=== PATIENT | male | born 1955 | race Caucasian/White ===

== ENCOUNTER 2021-01-10 11:38 | Day surgery (SDC) | payer OTHER, SELFPAY ==
[2021-01-03 14:28] VITALS: BMI 30.9
--- NOTE | 2021-01-09 10:11 | P.CONAN_ITS ---
Documented by User: Cony Clifford NP 01/09/21 10:11 HPI - Anesthesia Eval Consult details Narrative: 65yo M for Upper Endoscopy and Colonoscopy [facility] Past Medical History Medical History Barretts esophagus Hepatitis HTN (hypertension) Ischemic colitis Surgical History Surgical History H/O colonoscopy History of esophagogastroduodenoscopy (EGD) Hx of cholecystectomy Hx of total knee replacement Social History Social History Household Members: Spouse Alcohol intake: current Alcohol intake frequency: a few times a week Patient Tobacco Use Status: Current someday Tobacco user Tobacco use type: Cigar Advance Directives Information Provided: No Meds Allergies Allergy/AdvReac Type Severity Reaction Status Date / Time No Known Allergies Allergy Verified 01/10/21 12:01 Home Medications Medication Instructions Recorded Confirmed Last Taken Type amlodipine 10 mg tablet 10 mg PO DAILY 01/03/21 01/03/21 01/10/21 08:00 History aspirin 81 mg tablet,delayed 81 mg PO DAILY 01/03/21 01/03/21 01/07/21 08:00 History release pantoprazole 20 mg tablet,delayed 20 mg PO DAILY 01/03/21 01/03/21 Unknown History release Exam Exam Date and Time: January 09, 2021 1011 Height,Weight and Vital Signs: Height 5 ft 4 in Weight 81.647 kg Assessment and Plan Assessment Anesthesia Assessment: Chart Reviewed Documented by User: Renu Lema MD 01/10/21 13:06 [facility] Past Medical History Medical History Barretts esophagus Hepatitis HTN (hypertension) Ischemic colitis Surgical History Surgical History H/O colonoscopy History of esophagogastroduodenoscopy (EGD) Hx of cholecystectomy Hx of total knee replacement History of Problems with Anesthesia: No Social History Social History Household Members: Spouse Alcohol intake: current Alcohol intake frequency: a few times a week Patient Tobacco Use Status: Current someday Tobacco user Tobacco use type: Cigar Advance Directives Information Provided: No Meds Allergies Allergy/AdvReac Type Severity Reaction Status Date / Time No Known Allergies Allergy Verified 01/10/21 12:01 Home Medications Medication Instructions Recorded Confirmed Last Taken Type amlodipine 10 mg tablet 10 mg PO DAILY 01/03/21 01/03/21 01/10/21 08:00 History aspirin 81 mg tablet,delayed 81 mg PO DAILY 01/03/21 01/03/21 01/07/21 08:00 History release pantoprazole 20 mg tablet,delayed 20 mg PO DAILY 01/03/21 01/03/21 Unknown His tory release Exam Airway Mallampati Class: II TM Dist: >3cm Neck ROM: Full Loose/Missing/Broken Teeth: No Heart: RRR Lungs: CTA Assessment and Plan Final Anesthetic Review History of Problems with Anesthesia: No NPO: Yes ASA Class: II Final Preanesthetic Review: Meds/Allgs Chart Reviewed, Consent Obtained/Reviewed and Anes Risks/Benef Reviewed Patient Risk: Low Procedure Risk: Intermediate Anesthetic Plan Anesthetic Plan: MAC: Disposition: Standard PACU
[2021-01-10 12:02] VITALS: BP 143/80; PULSE 77; RESP 18; TEMP 36.4; O2SAT 94
[2021-01-10] MEDS: Lactated Ringers 1,000 ML 100 ML IVCONT (12:19)
--- NOTE | 2021-01-10 13:05 | MHC.SHP ---
Pre-Procedural Eval Section A Date of Service: 01/10/21 The patient is an INPATIENT: No Changes since office visit: No Cold of Flu in the past 2 weeks, No New Medical Problems, No Changes in Medication and No Patient answered all questions The History & Physical has been completed within 30 days and I have reviewed it.: Yes Section B Chief Complaint: reflux,screening Allergies: Allergies Allergy/AdvReac Type Severity Reaction Status Date / Time No Known Allergies Allergy Verified 01/10/21 12:01 Plan I have reviewed the history and physical and performed a pertinent physical examination on my patient. No changes have occurred unless specified.
--- NOTE | 2021-01-10 13:43 | P.BOP_ITS ---
Brief Operative Note Date of Service: 01/10/21 Pre-op diagnosis: barretts, screening Post-op diagnosis: same (colon polyp, diverticulosis) Procedure: EGD/Colonosocpy Surgeon: Chapito Dotson Anesthesia: MAC Was an Mixed Crop Farmer used for this Procedure?: No Estimated blood loss (mL): 5 Pathology: other (antral bxs, esophagus bxs, polyp at 45 cm) Condition: stable Disposition: PACU
[2021-01-10 13:45] VITALS: BP 113/71; PULSE 72; RESP 18; TEMP 36.1; O2SAT 96
[2021-01-10 14:00] VITALS: BP 139/77; PULSE 67; RESP 18; TEMP 36.1; O2SAT 98
--- NOTE | 2021-01-10 14:14 | OP_ITS ---
SURGEON: Chapito Dotson MD INDICATIONS: 1. Wilkins's esophagus. 2. Colon cancer screening, rectal bleeding, and history of ischemic colitis. PREOPERATIVE DIAGNOSIS: POSTOPERATIVE DIAGNOSIS: PROCEDURE PERFORMED: 1. Upper endoscopy with biopsy. 2. Colonoscopy to the terminal ileum with biopsy. ESTIMATED BLOOD LOSS: COMPLICATIONS: ANESTHESIA: ASSISTANTS: SPECIMENS: MEDICATIONS: Monitored anesthesia care. DESCRIPTION OF PROCEDURE: History and physical performed. The risks and benefits of the procedure were explained to the patient. Informed consent was obtained. The patient was placed in a left lateral decubitus position. A digital rectal exam was performed prior to the colonoscopy. The Olympus video gastroscope was introduced into the esophagus, stomach, and duodenum. Examination was performed and the scope was removed. He was repositioned for colonoscopy. The Olympus pediatric video colonoscope was introduced into the rectum and advanced to the cecum without difficulty. The cecum was identified by transillumination, palpation, and identification of ileocecal valve. Examination was performed and the scope was removed. He tolerated both procedures well and was taken to recovery area in stable condition. FINDINGS: UPPER ENDOSCOPY: Esophagus: There was a less than 2 cm area of Wilkins's esophagus with no raised lesions or ulcerated areas. Biopsies were obtained at 34 and 33 cm. Stomach: Stomach showed a single polypoid area and the pre-pyloric area that was notable for a 2 mm area of ulceration. Biopsies were obtained from the antrum at this site. Duodenum: The bulb and second portion were normal. COLONOSCOPY: The terminal ileum was examined and appeared normal. The visualized colonic mucosa was within normal limits. There was no evidence of ischemic colitis. A single polyp measuring less than 5 mm was identified at 45 cm, removed with biopsy forceps. No other polyps were identified. There was extensive sigmoid diverticulosis with scattered diverticula in the right colon. Retroflexed examination showed internal hemorrhoids that were small to moderate in size. The quality of the prep was good. IMPRESSION: 1. Wilkins's esophagus. 2. Colon polyps. 3. Diverticulosis. RECOMMENDATION: Follow up the biopsy results. MD HETAL Mackey/STEPHANIE / [id number]
== END 2021-01-10 14:32 | disposition home or self-care (01) ==
PROVIDERS: PCP Internal Medicine; Visit Provider Internal Medicine Gastroenterology
PROC: (CPT 45380; principal; 2021-01-10 13:00)
DX: Z12.11 Encounter for screening for malignant neoplasm of colon (principal); D12.6 Benign neoplasm of colon, unspecified; K57.30 Diverticulosis of large intestine without perforation or abscess without bleeding; K64.8 Other hemorrhoids; Z86.010 Personal history of colon polyps; K22.70 Barrett's esophagus without dysplasia; K21.9 Gastro-esophageal reflux disease without esophagitis; I10 Essential (primary) hypertension; Z87.19 Personal history of other diseases of the digestive system
CPT/HCPCS: 45380; 43239; 88305; 88342

== ENCOUNTER 2021-05-08 06:06 | Day surgery (SDC) | payer OTHER, SELFPAY ==
[2021-05-01 10:27] VITALS: BMI 30.9
--- NOTE | 2021-05-07 08:46 | P.CONAN_ITS ---
Documented by User: Cony Clifford NP 05/07/21 08:47 HPI - Anesthesia Eval Consult details Narrative: 65yo M for Upper Endoscopy with [place] s/p EGD and [place] with MAC PMFSH Past Medical History Medical History Barretts esophagus Hepatitis HTN (hypertension) Ischemic colitis Surgical History Surgical History H/O colonoscopy History of esophagogastroduodenoscopy (EGD) Hx of cholecystectomy Hx of total knee replacement History of Problems with Anesthesia: No Social History Social History Household Members: Spouse Alcohol intake: current Alcohol intake frequency: a few times a week Patient Tobacco Use Status: Current someday Tobacco user Tobacco use type: Cigar Use of substances other than those prescribed or required for medical reasons: No Have you been hit, kicked, punched, or otherwise hurt by someone within the past year? If so, by whom?: No Are you DNR?: No Advance Directives: No Advance Directives Information Provided: Yes Recently lost weight without trying: No Nutrition Risks: No Nutritional Risk Poor oral hygiene: No Meds Allergies Allergy/AdvReac Type Severity Reaction Status Date / Time No Known Allergies Allergy Verified 01/10/21 12:01 Home Medications Medication Instructions Recorded Confirmed Last Taken Type amlodipine 10 mg tablet 10 mg PO DAILY 01/03/21 01/03/21 05/08/21 History aspirin 81 mg tablet,delayed 81 mg PO DAILY 01/03/21 01/03/21 04/30/21 History release pantoprazole 20 mg tablet,delayed 20 mg PO DAILY 01/03/21 01/03/21 05/08/21 History release Exam Exam Date and Time: May 07, 2021 0846 Height,Weight and Vital Signs: Height 5 ft 4 in Weight 81.647 kg Assessment and Plan Assessment Anesthesia Assessment: Chart Reviewed Final Anesthetic Review History of Problems with Anesthesia: No Documented by User: Pooja Ziegler MD 05/08/21 07:29 [facility] Past Medical History Medical History Barretts esophagus Hepatitis HTN (hypertension) Ischemic colitis Functional capacity: independent ambulation Family History Family history of problems with anesthesia: No Surgical History Surgical History H/O colonoscopy History of esophagogastroduodenoscopy (EGD) Hx of cholecystectomy Hx of total knee replacement Social History Social History Household Members: Spouse Alcohol intake: current Alcohol intake frequency: a few times a week Patient Tobacco Use Status: Current someday Tobacco user Tobacco use type: Cigar Use of substances other than those prescribed or required for medical reasons: No Have you been hit, kicked, punched, or otherwise hurt by someone within the past year? If so, by whom?: No Are you DNR?: No Advance Directives: No Advance Directives Information Provided: Yes Recently lost weight without trying: No Nutrition Risks: No Nutritional Risk Poor oral hygiene: No Meds Allergies Allergy/AdvReac Type Severity Reaction Status Date / Time No Known Allergies Allergy Verified 01/10/21 12:01 Home Medications Medication Instructions Recorded Confirmed Last Taken Type amlodipine 10 mg tablet 10 mg PO DAILY 01/03/21 01/03/21 05/08/21 History aspirin 81 mg tablet,delayed 81 mg PO DAILY 01/03/21 01/03/21 04/30/21 History release pantoprazole 20 mg tablet,delayed 20 mg PO DAILY 01/03/21 01/03/21 05/08/21 History release Exam Airway Mallampati Class: II TM Dist: >3cm Neck ROM: Full Heart: CTA Lungs: CTA Assessment and Plan Final Anesthetic Review Family History of Problems with Anesthesia: No NPO: Yes ASA Class: II Final Preanesthetic Review: No Changes in Pt Med Stat, Meds/Allgs Chart Reviewed and Consent Obtained/Reviewed Patient Risk: Low Procedure Risk: Low Anesthetic Plan Anesthetic Plan: MAC: Disposition: Standard PACU
[2021-05-08 06:30] VITALS: BP 127/80; PULSE 80; RESP 17; TEMP 36.1; O2SAT 98
[2021-05-08] MEDS: Lactated Ringers 1,000 ML 100 ML IVCONT (07:08)
--- NOTE | 2021-05-08 07:36 | P.HPSUR_ITS ---
Pre-Procedural Eval Section A Date of Service: 05/08/21 The patient is an INPATIENT: No Section B Chief Complaint: Wilkins's Details of Present Illness: see h&p Relevant Family History (Specify if Yes): No Relevant Social History: None Present Medications: see Short Stay Collaborative assessment Medical History: No relevant PMH History of Previous Operations: No relevant previous surgery Allergies: Allergies Allergy/AdvReac Type Severity Reaction Status Date / Time No Known Allergies Allergy Verified 01/10/21 12:01 Review of Systems Sugical H&P ROS: Negative: Constitution, Cardiovascular, Respiratory, Stephy rological, Psychiatric, Hem-Onc, Allergic/Immunologic, Gastrointestinal, Genitourinary, Musculoskeletal, Integumentary, Endocrine and Eyes/Ears/Nose/Throat Exam Surgical H&P Exam: Normal: HEENT, Normal: Heart, Normal: Lungs, Normal: Extremities, Normal: Abdomen, Normal: Skin and Normal: Neurological Plan Diagnosis/Plan: Unchanged I have reviewed the history and physical and performed a pertinent physical examination on my patient. No changes have occurred unless specified.
[2021-05-08 07:59] VITALS: BP 135/78; PULSE 80; RESP 20; TEMP 36.3; O2SAT 98
--- NOTE | 2021-05-08 07:59 | P.BOP_ITS ---
Brief Operative Note Date of Service: 05/08/21 Pre-op diagnosis: barretts with LGD Post-op diagnosis: same Surgeon: Chapito Dotson Anesthesia: MAC Was an Oversize Load Pilot Escort used for this Procedure?: No Estimated blood loss (mL): 53 Pathology: other (brushings and biopsies 34-36 cm) Condition: stable Disposition: PACU
[2021-05-08 08:14] VITALS: BP 147/89; PULSE 69; RESP 17; TEMP 36.3; O2SAT 97
--- NOTE | 2021-05-08 08:28 | OP_ITS ---
SURGEON: Chapito Dotson MD INDICATIONS: Wilkins esophagus with low-grade dysplasia. PREOPERATIVE DIAGNOSIS: POSTOPERATIVE DIAGNOSIS: PROCEDURE PERFORMED: Upper endoscopy with brushings and biopsy. ESTIMATED BLOOD LOSS: COMPLICATIONS: ANESTHESIA: Monitored anesthesia care. ASSISTANTS: SPECIMENS: DESCRIPTION OF PROCEDURE: History and physical was performed. The risks and benefits of the procedure were explained to the patient. Informed consent was obtained. The patient was placed in a left lateral decubitus position. An Olympus video gastroscope was introduced into the esophagus, stomach, and duodenum. Examination was performed. The scope was removed. He tolerated the procedure well and was taken to recovery room in stable condition. FINDINGS: Esophagus: The esophagus showed a 2 cm area of Wilkins esophagus between 34 and 36 cm with no evidence of ulcerated areas or raise lesions. Stomach: The stomach showed a small sliding hiatal hernia, but was otherwise unremarkable. Duodenum: The bulb and second portion were normal. Brushings and biopsies were obtained from the area of Wilkins esophagus for further evaluation. IMPRESSION: Wilkins esophagus with low-grade dysplasia. RECOMMENDATION: Followup the biopsy results. MD HETAL Mackey/STEPHANIE / [id number]
--- NOTE | 2021-05-08 12:50 | HO.POSTANES ---
Post Anesthesia Evaluation Post Anesthesia Evaluation Vital Signs: Vital Signs Temp Pulse Resp BP Pulse Ox 05/08/21 08:14 97.4 F 69 17 147/89 H 97 05/08/21 07:59 97.4 F 80 20 135/78 98 05/08/21 06:30 97 F 80 17 127/80 98 Anesthesia: Monitored Mental Status: Awake Pain Control: Satisfactory Nausea/Vomiting: None Hydration: Adequate Anesthesia-Related Issues: No Anes. Related Issues
== END 2021-05-08 08:38 | disposition home or self-care (01) ==
PROVIDERS: PCP Internal Medicine; Visit Provider Internal Medicine Gastroenterology
PROC: 0DJ08ZZ Inspection of Upper Intestinal Tract, Via Natural or Artificial Opening Endoscopic (ICD-10-PCS; CPT 43235; principal; 2021-05-08 07:30)
DX: K22.710 Barrett's esophagus with low grade dysplasia (principal); K21.9 Gastro-esophageal reflux disease without esophagitis; K44.9 Diaphragmatic hernia without obstruction or gangrene; K55.9 Vascular disorder of intestine, unspecified; I10 Essential (primary) hypertension; B18.2 Chronic viral hepatitis C; Z79.899 Other long term (current) drug therapy; Z79.82 Long term (current) use of aspirin; Z86.010 Personal history of colon polyps; Z90.49 Acquired absence of other specified parts of digestive tract; Z96.659 Presence of unspecified artificial knee joint; F17.290 Nicotine dependence, other tobacco product, uncomplicated
CPT/HCPCS: 43239; 88305

== ENCOUNTER 2022-07-16 08:13 | Day surgery (SDC) | payer OTHER, SELFPAY ==
--- NOTE | 2022-07-15 10:35 | HO.ANESPROP2 ---
Documented by User: Cony Clifford NP 07/15/22 10:35 HPI - Anesthesia Eval Consult details Narrative: 67yo M for Colonoscopy s/p EGD 05/2021 with [facility] Past Medical History Medical History Barretts esophagus Hepatitis HTN (hypertension) Ischemic colitis Family History Family history of problems with anesthesia: No Surgical History Surgical History H/O colonoscopy History of esophagogastroduodenoscopy (EGD) Hx of cholecystectomy Hx of total knee replacement History of Problems with Anesthesia: No Social History Social History Household Members: Spouse Alcohol intake: current Alcohol intake frequency: a few times a week Patient Tobacco Use Status: Current someday Tobacco user Tobacco use type: Cigar Use of substances other than those prescribed or required for medical reasons: No Are you DNR?: No Advance Directives: No Advance Directives Information Provided: Yes Recently lost weight without trying: No Nutrition Risks: No Nutritional Risk Meds Allergies Allergy/AdvReac Type Severity Reaction Status Date / Time No Known Allergies Allergy Verified 01/10/21 12:01 Home Medications Medication Instructions Recorded Confirmed Last Taken Type amlodipine 10 mg tablet 10 mg PO DAILY 01/03/21 07/16/22 07/16/22 History pantoprazole 20 mg tablet,delayed 20 mg PO DAILY 01/03/21 07/16/22 05/08/21 History release Exam Exam Date and Time: July 15, 2022 1035 Assessment and Plan Assessment Anesthesia Assessment: Chart Reviewed Final Anesthetic Review Family History of Problems with Anesthesia: No History of Problems with Anesthesia: No Documented by User: Alessandro Orozco MD 07/16/22 10:10 PMFSH Past Medical History Medical History Barretts esophagus Hepatitis HTN (hypertension) Ischemic colitis Surgical History Surgical History H/O colonoscopy History of esophagogastroduodenoscopy (EGD) Hx of cholecystectomy Hx of total knee replacement Social History Social History Household Members: Spouse Alcohol intake: current Alcohol intake frequency: a few times a week Patient Tobacco Use Status: Current someday Tobacco user Tobacco use type: Cigar Use of substances other than those prescribed or required for medical reasons: No Are you DNR?: No Advance Directives: No Advance Directives Information Provided: Yes Recently lost weight without trying: No Nutrition Risks: No Nutritional Risk Meds Allergies Allergy/AdvReac Type Severity Reaction Status Date / Time No Known Allergies Allergy Verified 01/10/21 12:01 Home Medications Medication Instructions Recorded Confirmed Last Taken Type amlodipine 10 mg tablet 10 mg PO DAILY 01/03/21 07/16/22 07/16/22 History pantoprazole 20 mg tablet,delayed 20 mg PO DAILY 01/03/21 07/16/22 05/08/21 History release Exam Airway Mallampati Class: I TM Dist: <=3cm Neck ROM: Full Heart: ok Lungs: ok Assessment and Plan Final Anesthetic Review NPO: Yes ASA Class: II Final Preanesthetic Review: No Changes in Pt Med Stat, Meds/Allgs Chart Reviewed, Consent Obtained/Reviewed and Anes Risks/Benef Reviewed Patient Risk: Intermediate Procedure Risk: Low Anesthetic Plan Anesthetic Plan: MAC: and Agree w/ Assess. and Plan Disposition: Standard PACU
[2022-07-16 08:37] VITALS: BMI 29.1
[2022-07-16 08:44] VITALS: BP 138/84; PULSE 79; RESP 16; TEMP 36.1; O2SAT 97
[2022-07-16] MEDS: Lactated Ringers 1,000 ML 100 ML IVCONT (09:00)
--- NOTE | 2022-07-16 10:03 | MHC.SHP ---
Pre-Procedural Eval Section A Date of Service: 07/16/22 Section B Chief Complaint: Noninfective gastroenteritis and colitis, Details of Present Illness: see H&P no changes Relevant Family History (Specify if Yes): No Relevant Social History: None Present Medications: see Short Stay Collaborative assessment Medical History: No relevant PMH History of Previous Operations: No relevant previous surgery Allergies: Allergies Allergy/AdvReac Type Severity Reaction Status Date / Time No Known Allergies Allergy Verified 01/10/21 12:01 Review of Systems Sugical H&P ROS: Negative: Constitution, Cardiovascular, Respiratory, Neurological, Psychiatric, Hem-Onc, Allergic/Immunologic, Gastrointestinal, Genitourinary, Musculoskeletal, Integumentary, Endocrine and Eyes/Ears/Nose/Throat Exam Surgical H&P Exam: Normal: HEENT, Normal: Heart, Normal: Lungs, Normal: Extremities, Normal: Abdomen, Normal: Skin and Normal: Neurological Plan Diagnosis/Plan: Unchanged I have reviewed the history and physical and performed a pertinent physical examination on my patient. No changes have occurred unless specified. Time Spent With Patient Time: Total time managing care of this patient today ____ minutes.
--- NOTE | 2022-07-16 10:32 | PM.OP ---
Brief Operative Note Date of Service: 07/16/22 Pre-op diagnosis: colitis, screening Post-op diagnosis: same Procedure: colonoscopy Surgeon: Chapito Dotson Anesthesia: MAC Was an Accounts Receivable Coordinator used for this Procedure?: No Estimated blood loss (mL): 2 Pathology: other Condition: stable Disposition: PACU
[2022-07-16 10:33] VITALS: BP 112/70; PULSE 77; RESP 16; TEMP 36.2; O2SAT 92
[2022-07-16 10:48] VITALS: BP 136/78; PULSE 67; RESP 18; TEMP 36.8; O2SAT 97
--- NOTE | 2022-07-16 21:13 | OP_ITS ---
SURGEON: Chapito Dotson MD INDICATIONS: Colon cancer screening and history of colitis. PREOPERATIVE DIAGNOSIS: POSTOPERATIVE DIAGNOSIS: PROCEDURE PERFORMED: Colonoscopy to the terminal ileum with snare polypectomy and biopsy. ESTIMATED BLOOD LOSS: COMPLICATIONS: ANESTHESIA: Monitored anesthesia care. ASSISTANTS: SPECIMENS: PROCEDURE DESCRIPTION: Date:07/16/22. A history and physical performed. The risks and benefits of the procedure were explained to the patient. Informed consent was obtained. The patient placed in the left lateral decubitus position. A digital rectal exam was performed and was found to be normal. The Olympus pediatric videocolonoscope was introduced into the rectum and advanced to the cecum without difficulty. The cecum was identified by transillumination, palpation, and identification of ileocecal valve. Examination was performed. The scope was removed. He tolerated the procedure well and was turned recovery area in stable condition. FINDINGS: The terminal ileum was examined and appeared normal. The visualized colonic mucosa was within normal limits without evidence of masses or ulcers. In the right colon, there were 5 less than 10 mm polyps. These were removed with combination of biopsy forceps and cold snare. No other polyps were identified. There was moderate sigmoid diverticulosis. Retroflexed examination showed small internal hemorrhoids. Sigmoid biopsies were obtained. IMPRESSION: Colon polyps. RECOMMENDATIONS: 1. Follow up with biopsy results. MD HETAL Mackey/STEPHANIE / [id number] MTDD
== END 2022-07-16 11:15 | disposition home or self-care (01) ==
PROVIDERS: PCP Internal Medicine; Visit Provider Internal Medicine Gastroenterology
PROC: 0DJD8ZZ Inspection of Lower Intestinal Tract, Via Natural or Artificial Opening Endoscopic (ICD-10-PCS; CPT 45378; principal; 2022-07-16 09:40)
DX: Z12.2 Encounter for screening for malignant neoplasm of respiratory organs (principal); Z86.010 Personal history of colon polyps; D12.2 Benign neoplasm of ascending colon; K57.30 Diverticulosis of large intestine without perforation or abscess without bleeding; K64.8 Other hemorrhoids; Z87.19 Personal history of other diseases of the digestive system; K22.70 Barrett's esophagus without dysplasia; I10 Essential (primary) hypertension; B18.2 Chronic viral hepatitis C; Z79.899 Other long term (current) drug therapy; Z90.49 Acquired absence of other specified parts of digestive tract
CPT/HCPCS: 45385; 45380; 88305

== ENCOUNTER 2023-06-03 08:44 | Day surgery (SDC) | payer MEDICARE, SELFPAY ==
[2023-05-30 13:37] VITALS: BMI 31.4
[2023-06-03 09:21] VITALS: BMI 34.3
--- NOTE | 2023-06-03 09:38 | HO.ANESPROP2 ---
HPI - Anesthesia Eval Consult details Narrative: GERD, Wilkins's Esophagus PMFSH Past Medical History Medical History Tubular adenoma Ischemic colitis Hepatitis HTN (hypertension) Barretts esophagus Family History Family history of problems with anesthesia: No Surgical History Surgical History Hx of total knee replacement Hx of cholecystectomy History of esophagogastroduodenoscopy (EGD) H/O colonoscopy History of Problems with Anesthesia: No Social History Social History Household Members: Spouse Alcohol intake: current Alcohol intake frequency: a few times a week Patient Tobacco Use Status: Never used Tobacco Tobacco use type: Cigar Use of substances other than those prescribed or required for medical reasons: No Are you DNR?: No Advance Directives: No Advance Directives Information Provided: Yes Meds Allergies Allergy/AdvReac Type Severity Reaction Status Date / Time No Known Allergies Allergy Verified 01/10/21 12:01 Active Medications: Current Medications Lactated Ringer's (Lr) 1,000 mls @ 100 mls/hr IVCONT .Q10H [facility] Home Medications Medication Instructions Recorded Confirmed Last Taken Type amlodipine 10 mg tablet 10 mg PO DAILY 01/03/21 06/03/23 06/03/23 History multivitamin 1 tab PO DAILY 05/30/23 05/30/23 Unknown History esomeprazole sodium 20 mg PO DAILY 06/03/23 06/03/23 06/03/23 History Exam Height,Weight and Vital Signs: Height 5 ft 4 in Weight 90.718 kg Airway Mallampati Class: III TM Dist: >3cm Neck ROM: Full Loose/Missing/Broken Teeth: No Heart: [id number] Lungs: cta b/l Assessment and Plan Assessment Anesthesia Assessment: Anesthesia Plan Discussed and Chart Reviewed Final Anesthetic Review Family History of Problems with Anesthesia: No History of Problems with Anesthesia: No NPO: Yes ASA Class: II Final Preanesthetic Review: No Changes in Pt Med Stat, Meds/Allgs Chart Reviewed, Consent Obtained/Reviewed and Anes Risks/Benef Reviewed Patient Risk: Intermediate Procedure Risk: Intermediate Assessment/Block/Sedation in : Assess/Block/Sedation- Anesthetic Plan Anesthetic Plan: MAC: Disposition: Standard PACU
[2023-06-03 09:42] VITALS: BP 150/88; PULSE 80; RESP 16; TEMP 36; O2SAT 98
--- NOTE | 2023-06-03 09:53 | MHC.SHP ---
Pre-Procedural Eval Section A - 24 Hr Update-Section A only Date of Service: 06/03/23 Section B - Complete if H&P > 30 days Chief Complaint: Wilkins's esophagus without dysplasia Details of Present Illness: see H&P no changes Relevant Family History (Specify if Yes): No Relevant Social History: None Present Medications: see Short Stay Collaborative assessment Medical History: No relevant PMH History of Previous Operations: No relevant previous surgery Allergies: Allergies Allergy/AdvReac Type Severity Reaction Status Date / Time No Known Allergies Allergy Verified 06/03/23 09:43 Review of Systems Sugical H&P ROS: Negative: Constitution, Cardiovascular, Respiratory, Neurological, Psychiatric, Hem-Onc, Allergic/Immunologic, Gastrointestinal, Genitourinary, Musculoskeletal, Integumentary, Endocrine and Eyes/Ears/Nose/Throat Exam Surgical H&P Exam: Normal: HEENT, Normal: Heart, Normal: Lungs, Normal: Extremities, Normal: Abdomen, Normal: Skin and Normal: Neurological Plan Diagnosis/Plan: Unchanged I have reviewed the history and physical and performed a pertinent physical examination on my patient. No changes have occurred unless specified. Time Spent With Patient Time: Total time managing care of this patient today ____ minutes.
[2023-06-03 10:16] VITALS: BP 138/76; PULSE 83; RESP 16; TEMP 36.4; O2SAT 96
[2023-06-03 10:31] VITALS: BP 139/77; PULSE 68; RESP 18; TEMP 36.1; O2SAT 99
--- NOTE | 2023-06-03 10:38 | OP_ITS ---
DATE OF SERVICE: 06/03/2023 SURGEON: Chapito Dotson MD INDICATIONS: Wilkins's esophagus. PREOPERATIVE DIAGNOSIS: POSTOPERATIVE DIAGNOSIS: PROCEDURE PERFORMED: Upper endoscopy with biopsy. ESTIMATED BLOOD LOSS: COMPLICATIONS: ANESTHESIA: Monitored anesthesia care. ASSISTANTS: SPECIMENS: DESCRIPTION OF PROCEDURE: A history and physical was performed. The risks and benefits of the procedure were explained to the patient. Informed consent was obtained. The patient was placed in the left lateral decubitus position. The Olympus video gastroscope was introduced into the esophagus, stomach, and duodenum. Examination was performed. The scope was removed. He tolerated the procedure well and was returned to the recovery area in stable condition. FINDINGS: Esophagus: There was a short-segment of Wilkins esophagus just above the EG junction. Biopsies were obtained. There was no evidence of masses, ulcers, or polyps. No ulceration was identified. Stomach: The stomach was normal. Duodenum: The bulb and 2nd portion were normal. IMPRESSION: Wilkins's esophagus. RECOMMENDATION: Follow up the biopsy results. MD HETAL Mackey/STEPHANIE / [id number]
== END 2023-06-03 11:15 | disposition home or self-care (01) ==
PROVIDERS: PCP Internal Medicine; Visit Provider Internal Medicine Gastroenterology
PROC: 0DJ08ZZ Inspection of Upper Intestinal Tract, Via Natural or Artificial Opening Endoscopic (ICD-10-PCS; CPT 43235; principal; 2023-06-03 10:10)
DX: K22.70 Barrett's esophagus without dysplasia (principal); Z87.19 Personal history of other diseases of the digestive system; I10 Essential (primary) hypertension; B18.2 Chronic viral hepatitis C; Z86.010 Personal history of colon polyps; Z90.49 Acquired absence of other specified parts of digestive tract; Z79.899 Other long term (current) drug therapy
CPT/HCPCS: 43239; 88305; 88313; 88342; J1596; J2704

== ENCOUNTER 2024-07-13 07:09 | Day surgery (SDC) | payer MEDICARE, SELFPAY ==
[2024-07-09 14:03] VITALS: BMI 30.9
--- NOTE | 2024-07-12 11:57 | P.CONAN_ITS ---
Documented by User: Cony Clifford NP 07/12/24 11:57 HPI - Anesthesia Eval Consult details Narrative: 69yo M for [facility] Past Medical History Medical History Hepatitis C Tubular adenoma Ischemic colitis Hepatitis HTN (hypertension) Barretts esophagus Family History Family history of problems with anesthesia: No Surgical History Surgical History Hx of total knee replacement Hx of cholecystectomy History of esophagogastroduodenoscopy (EGD) H/O colonoscopy History of Problems with Anesthesia: No Social History Social History Household Members: Spouse Alcohol intake: current Alcohol intake frequency: a few times a week Patient Tobacco Use Status: Current someday Tobacco user Tobacco use type: Cigar Meds Allergies Allergy/AdvReac Type Severity Reaction Status Date / Time No Known Allergies Allergy Verified 07/13/24 08:12 Home Medications ?Medication ?Instructions ?Recorded ?Confirmed ?Last Taken ?Type amlodipine 10 mg tablet 10 mg PO DAILY 01/03/21 07/09/24 07/13/24 05:00 History multivitamin 1 tab PO DAILY 05/30/23 07/09/24 Unknown History omeprazole 40 mg capsule,delayed 40 mg PO DAILY 07/09/24 07/09/24 07/13/24 05:00 History release saw palmetto 500 mg capsule 500 mg PO BID 07/09/24 07/09/24 Unknown History Exam Height,Weight and Vital Signs: Height 5 ft 4 in Weight 81.647 kg Assessment and Plan Assessment Anesthesia Assessment: Chart Reviewed Final Anesthetic Review Family History of Problems with Anesthesia: No History of Problems with Anesthesia: No Documented by User: Renu Lema MD 07/13/24 09:01 PMF Past Medical History Medical History Hepatitis C Tubular adenoma Ischemic colitis Hepatitis HTN (hypertension) Barretts esophagus Surgical History Surgical History Hx of total knee replacement Hx of cholecystectomy History of esophagogastroduodenoscopy (EGD) H/O colonoscopy Social History Social History Household Members: Spouse Alcohol intake: current Alcohol intake frequency: a few times a week Patient Tobacco Use Status: Current someday Tobacco user Tobacco use type: Cigar Meds Allergies Allergy/AdvReac Type Severity Reaction Status Date / Time No Known Allergies Allergy Verified 07/13/24 08:12 Home Medications ?Medication ?Instructions ?Recorded ?Confirmed ?Last Taken ?Type amlodipine 10 mg tablet 10 mg PO DAILY 01/03/21 07/09/24 07/13/24 05:00 History multivitamin 1 tab PO DAILY 05/30/23 07/09/24 Unknown History omeprazole 40 mg capsule,delayed 40 mg PO DAILY 07/09/24 07/09/24 07/13/24 05:00 History release saw palmetto 500 mg capsule 500 mg PO BID 07/09/24 07/09/24 Unknown History Exam Airway Mallampati Class: III TM Dist: >3cm Neck ROM: Full Loose/Missing/Broken Teeth: No Heart: RRR Lungs: CTA Assessment and Plan Assessment Anesthesia Assessment: Anesthesia Plan Discussed Final Anesthetic Review NPO: Yes ASA Class: II Final Preanesthetic Review: Meds/Allgs Chart Reviewed, Consent Obtained/Reviewed and Anes Risks/Benef Reviewed Patient Risk: Low Procedure Risk: Intermediate Anesthetic Plan Anesthetic Plan: MAC: Disposition: Standard PACU
[2024-07-13 08:12] VITALS: BMI 33.3
[2024-07-13 08:14] VITALS: BP 158/83; PULSE 85; RESP 16; TEMP 36.2; O2SAT 96
--- NOTE | 2024-07-13 08:39 | P.HPSUR_ITS ---
Pre-Procedural Eval Section A - 24 Hr Update-Section A only Date of Service: 07/13/24 Section B - Complete if H&P > 30 days Chief Complaint: Wilkins's esophagus with low grade dysplasia Details of Present Illness: see H*P no changes Relevant Family History (Specify if Yes): No Relevant Social History: None Present Medications: see Short Stay Collaborative assessment Medical History: No relevant PMH History of Previous Operations: No relevant previous surgery Allergies: Allergies Allergy/AdvReac Type Severity Reaction Status Date / Time No Known Allergies Allergy Verified 07/13/24 08:12 Review of Systems Sugical H&P ROS: Negative: Constitution, Cardiovascular, Respiratory, Neurological, Psychiatric, Hem-Onc, Allergic/Immunologic, Gastrointestinal, Genitourinary, Musculoskeletal, Integumentary, Endocrine and Eyes/Ears/Nose/Th roat Exam Surgical H&P Exam: Normal: HEENT, Normal: Heart, Normal: Lungs, Normal: Extremities, Normal: Abdomen, Normal: Skin and Normal: Neurological Plan Diagnosis/Plan: Unchanged I have reviewed the history and physical and performed a pertinent physical examination on my patient. No changes have occurred unless specified. Time Spent With Patient Time: Total time managing care of this patient today ____ minutes.
[2024-07-13] MEDS: Lactated Ringers 1,000 ML 100 ML IVCONT (08:40)
[2024-07-13 09:07] VITALS: BP 126/69; PULSE 81; RESP 18; TEMP 36.1; O2SAT 98
[2024-07-13 09:22] VITALS: BP 128/76; PULSE 72; RESP 16; O2SAT 98
--- NOTE | 2024-07-13 09:28 | OP_ITS ---
DATE OF SERVICE: 07/13/2024 SURGEON: Chapito Dotson MD INDICATIONS: Wilkins esophagus, indefinite for dysplasia. PREOPERATIVE DIAGNOSIS: POSTOPERATIVE DIAGNOSIS: PROCEDURE PERFORMED: Upper endoscopy with biopsy and brushings. ESTIMATED BLOOD LOSS: COMPLICATIONS: ANESTHESIA: Monitored anesthesia care. ASSISTANTS: SPECIMENS: DESCRIPTION OF PROCEDURE: A history and physical performed. The risks and benefits of the procedure explained to the patient. Informed consent was obtained. The patient placed in the left lateral decubitus position. The Olympus videogastroscope was introduced into the esophagus, stomach, and duodenum. Examination was performed. The scope was removed. He tolerated the procedure well and was taken to recovery area in stable condition. FINDINGS: Esophagus: There was a 2 cm area of Wilkins esophagus from the EG junction at 35 cm extending up to 33 cm. There were no raised lesions or ulcerated areas. Brushings were obtained for cytology and WATS evaluation. Biopsies were then obtained in all 4 quadrants at 2 levels. Stomach: Stomach showed some focal areas of mild inflammation in the body. Duodenum: The bulb and 2nd portion were normal. IMPRESSION: Wilkins esophagus. RECOMMENDATIONS: Follow up the biopsy and brushing results. MD HETAL Mackey/STEPHANIE / [id number]
[2024-07-13 09:38] VITALS: BP 118/79; PULSE 71; RESP 16; TEMP 36.2; O2SAT 97
== END 2024-07-13 10:05 | disposition home or self-care (01) ==
PROVIDERS: PCP Internal Medicine; Visit Provider Internal Medicine Gastroenterology
PROC: 0DJ08ZZ Inspection of Upper Intestinal Tract, Via Natural or Artificial Opening Endoscopic (ICD-10-PCS; CPT 43235; principal; 2024-07-13 09:00)
DX: K22.70 Barrett's esophagus without dysplasia (principal); K29.70 Gastritis, unspecified, without bleeding; R19.7 Diarrhea, unspecified; K21.9 Gastro-esophageal reflux disease without esophagitis; I10 Essential (primary) hypertension; B18.2 Chronic viral hepatitis C; Z87.19 Personal history of other diseases of the digestive system; Z79.899 Other long term (current) drug therapy; Z90.49 Acquired absence of other specified parts of digestive tract
CPT/HCPCS: 43239; 88305; J2250; J2704